=== PATIENT | male | born 1955 | race Caucasian/White ===

== ENCOUNTER 2022-06-23 09:09 | Day surgery (SDC) | payer MEDICARE, BC ==
[~2022-06-23] VITALS: Ht 182.9 cm; Wt 70.5 kg
[2022-06-23 09:21] VITALS: BP 104/57
[2022-06-23] MEDS ORDERED: LEVO137T24 PO (09:30)
[2022-06-23] MEDS ORDERED: SITA1TAB6 PO (09:30)
[2022-06-23] MEDS ORDERED: CANA300T PO (09:32)
[2022-06-23] MEDS ORDERED: SEMA0.25 SQ (09:34)
[2022-06-23] MEDS ORDERED: REPA2TAB12 PO (09:38)
[2022-06-23] MEDS ORDERED: fentaNYL/PF 50MCG/1 ML 2ML syringe ONE (09:39)
[2022-06-23] MEDS ORDERED: MIDAZolam 1 MG/ML 5ML VIAL ONE (09:39)
[2022-06-23] MEDS ORDERED: LIDOcaine Viscous 15ml cup ONE (09:39)
[2022-06-23 12:22] VITALS: BP 102/64
[2022-06-23 12:32] VITALS: BP 107/56
[2022-06-23 12:42] VITALS: BP 114/83
== END 2022-06-23 13:48 | disposition home or self-care (01) ==
LOC: GI LAB 09:09
PROVIDERS: ATTEND Internal Medicine Gastroenterology
DX: Z12.11 Encounter for screening for malignant neoplasm of colon (principal); K21.9 Gastro-esophageal reflux disease without esophagitis; Z79.899 Other long term (current) drug therapy; Z98.890 Other specified postprocedural states
CPT/HCPCS: 43239; 99153; G0121; G0500; J2250; J3010; J7030; Z7512; 45378; 88305; 99152

== ENCOUNTER 2025-09-16 14:42 | Outpatient (CLI) | payer MEDICARE, BC ==
[~2025-09-16 14:42] MED LIST: CANA300T PO; LEVO137T24 PO; REPA2TAB PO; SEMA0.25 SQ; SITA1TAB6 PO
--- NOTE | 2025-09-16 16:42 | RADIOLOGY REPORT ---
EXAM: CT CT LOWER EXTREMITY INDICATION: PAIN IN LEFT FOOT TECHNIQUE: Axial images of left foot have been obtained along with coronal and sagittal reformatted images. All CT scans at this facility use dose modulation, iterative reconstruction, and/or weight based dosing when appropriate to reduce radiation dose to as low as reasonably achievable. COMPARISON: None FINDINGS: BONES: Vascular calcifications. Extensive hardware placement both medial and laterally applied at the level of the midfoot. 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 No definitive CT evidence of loosening. 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 Trace plantar calcaneal spur. [id number] degenerative change with marginal osteophytosis of the ankle mortise and subchondral cystic change of the talar dome. MUSCLES: Minimal to mild fatty infiltration along the distal intrinsic musculature primarily affecting the interosseous muscles of the forefoot. OTHER: None. IMPRESSION: 1. 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 2. 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 3. 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
== END 2025-09-16 23:59 | disposition home or self-care (01) ==
LOC: RAD 14:42
PROVIDERS: ATTEND Podiatrist Foot & Ankle Surgery
DX: S92.902G Unspecified fracture of left foot, subsequent encounter for fracture with delayed healing (principal); M19.072 Primary osteoarthritis, left ankle and foot; M79.672 Pain in left foot; M24.675 Ankylosis, left foot; M21.40 Flat foot [pes planus] (acquired), unspecified foot; M24.573 Contracture, unspecified ankle; N39.0 Urinary tract infection, site not specified; X58.XXXD Exposure to other specified factors, subsequent encounter
CPT/HCPCS: 73700